=== PATIENT | female | born 2000 ===

== ENCOUNTER 2019-12-31 13:53 | Inpatient (IN) | payer BC ==
[2019-12-31] MEDS ORDERED: Methylergonovine 0.2 MG/1 ML Amp IM PRN (15:40)
[2019-12-31] MEDS ORDERED: Sodium Chloride 0.9% 2.5 ML Syringe FLUSH PRN (15:40)
[2019-12-31] MEDS ORDERED: Water For Irrigation,Sterile 1,000 ML Container IRR PRN (15:40)
[2019-12-31] MEDS ORDERED: Carboprost Tromethamine 250 MCG/1 ML Amp IM PRN (15:40)
[2019-12-31] MEDS ORDERED: Misoprostol 200 MCG Tab PO PRN (15:40)
[2019-12-31] MEDS ORDERED: Butorphanol 1 MG/ML SDV IVPUSH PRN (15:40)
[2019-12-31] MEDS ORDERED: Lidocaine 1% 50 ML MDV INJECT PRN (15:40)
[2019-12-31] MEDS ORDERED: Sodium Chloride 0.9% 10 ML Syringe FLUSH PRN (15:40)
[2019-12-31] MEDS ORDERED: Sodium Chloride 0.9% 10 ML SDV IV PRN (15:40)
[2019-12-31] MEDS ORDERED: Tranexamic Acid 1,000 MG in Sodium Chloride 0.9% 100 ML IV PRN (15:40)
[2019-12-31] MEDS ORDERED: Nalbuphine 10 MG/1 ML Vial IVPUSH PRN (15:40)
[2019-12-31] MEDS ORDERED: Oxytocin/0.9 % Sodium Chloride 30 UNIT/500 ML BAG IV SCH (15:45)
[2019-12-31] MEDS: Lactated Ringers 1,000 ML IV SCH ×2 (16:43→18:45)
[2019-12-31] MEDS ORDERED: fentaNYL 100 MCG/2 ML SDV ONE (17:14)
[2019-12-31] MEDS ORDERED: Ropivacaine HCl/PF 100 ML ONE (17:14)
--- NOTE | 2019-12-31 17:58 | PCM.PREANE ---
Preanesthetic Assessment - Procedure Proposed Procedure: Late entry, bedside for patient physical assessment and medical history at 1720. Continuous labor epidural for active labor. - Anesthesia/Transfusion/Family Hx Anesthesia History: Prior Anesthesia Without Reaction (Flint teeth under GA with no anesthetic complications. No other known surgeries.) Family History of Anesthesia Reaction: No Transfusion History: No Prior Transfusion(s) - Review of Systems General: No Symptoms Pulmonary: No Symptoms Cardiovascular: No Symptoms Gastrointestinal: No Symptoms Neurological: No Symptoms Other: Reports: None - Physical Assessment NPO Status Date: 12/31/19 (NPO for food, clear liquids okay) NPO Status Time: 11:00 Height: 1.65 m Weight: 93.44 kg ASA Class: 2 Mental Status: Alert & Oriented x3 Airway Class: Mallampati = 2 Dentition: Reports: Normal Dentition Thyro-Mental Finger Breadths: 3 Mouth Opening Finger Breadths: 3 ROM/Head Extension: Full Lungs: Normal Respiratory Effort Cardiovascular: Regular Rate, Regular Rhythm - Lab Values: Laboratory Last Values WBC 14.35 K/uL (4.0-11.0) H 12/31/19 17:04 RBC 4.98 M/uL (4.30-5.90) 12/31/19 17:04 Hgb 15.0 g/dL (12.0-16.0) 12/31/19 17:04 Hct 44.3 % (36.0-46.0) 12/31/19 17:04 MCV 89.0 fL (80.0-98.0) 12/31/19 17:04 MCH 30.1 pg (27.0-32.0) 12/31/19 17:04 MCHC 33.9 g/dL (31.0-37.0) 12/31/19 17:04 RDW Std Deviation 42.1 fl (28.0-62.0) 12/31/19 17:04 RDW Coeff of José Miguel 13 % (11.0-15.0) 12/31/19 17:04 Plt Count 282 K/uL (150-400) 12/31/19 17:04 MPV 12.30 fL (7.40-12.00) H 12/31/19 17:04 Nucleated RBC % 0.0 /100WBC 12/31/19 17:04 Nucleated RBCs # 0 K/uL 12/31/19 17:04 SARS-CoV-2 RNA (LANI) NEGATIVE (NEGATIVE) 12/31/19 15:55 - Allergies Allergies/Adverse Reactions: Allergies Allergy/AdvReac Type Severity Reaction Status Date / Time No Known Allergies Allergy Verified 12/31/19 14:39 - Anesthesia Plan Pre-Op Medication Ordered: None - Acknowledgements Anesthesia Type Planned: Epidural Pt an Appropriate Candidate for the Planned Anesthesia: Yes Alternatives and Risks of Anesthesia Discussed w Pt/Guardian: Yes Pt/Guardian Understands and Agrees with Anesthesia Plan: Yes Additional Comments: Pt consented for MARIPOSA with ASSISTANT STORE DIRECTOR. RN witness present. 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 (See Below) Other OB/BYN History: Genital Herpes - Infectious Disease History Infectious Disease History: Reports: Herpes - Past Surgical History HEENT Surgical History: Reports: Other (See Below) Other HEENT Surgeries/Procedures: [place] Teeth Extraction - SUBSTANCE USE Smoking Status *Q: Never Smoker Second Hand Smoke Exposure: No Recreational Drug Use History: No - HOME MEDS Home Medications: Home Meds No122/Iron/Folic Acid [ Multi Tablet] 1 tab PO DAILY 12/31/19 [History] valACYclovir [Valtrex] 500 mg PO DAILY 12/31/19 [History] - CURRENT (IN HOUSE) MEDS Current Meds: Current Medications Butorphanol Tartrate (Stadol) 1 mg IVPUSH Q1H PRN PRN Reason: Pain Carboprost Tromethamine (Hemabate Ds) 250 mcg IM ASDIRECTED PRN PRN Reason: Post Hemorrhage Lactated Ringer's (Ringers, Lactated) 1,000 mls @ 150 mls/hr IV ASDIRECTED [facility] Last Admin: 12/31/19 16:43 Dose: 150 mls/hr Documented by: Oxytocin/Sodium Chloride (Oxytocin 30 Unit/500 Ml-Ns) 30 unit in 500 mls @ 500 mls/hr IV TITRATE ADILIA Tranexamic Acid 1,000 mg/ (Sodium Chloride) 110 mls @ 660 mls/hr IV ONETIME PRN PRN Reason: Bleeding Lidocaine HCl (Xylocaine 1%) 50 ml INJECT ONETIME PRN PRN Reason: Laceration repair Methylergonovine Maleate (Methergine) 0.2 mg IM ASDIRECTED PRN PRN Reason: Post Hemorrhage Misoprostol (Cytotec) 200 mcg PO ONETIME PRN PRN Reason: Post Hemorrhage Nalbuphine HCl (Nubain) 10 mg IVPUSH Q1H PRN PRN Reason: Pain (severe 7-10) Sodium Chloride (Saline Flush) 10 ml FLUSH ASDIRECTED PRN PRN Reason: Keep Vein Open Sodium Chloride (Saline Flush) 2.5 ml FLUSH ASDIRECTED PRN PRN Reason: Keep Vein Open Sodium Chloride (Normal Saline) 10 ml IV ASDIRECTED PRN PRN Reason: IV Use Sterile Water (Sterile Water For Irrigation) 1,000 ml IRR ASDIRECTED PRN PRN Reason: delivery Discontinued Medications Fentanyl (Sublimaze) Confirm Administered Dose 200 mcg .ROUTE .STK-MED ONE Stop: 12/31/19 17:15 Ropivacaine (Naropin 0.2%) Confirm Administered Dose 100 mls @ as directed .ROUTE .STK-MED ONE Stop: 12/31/19 17:15
--- NOTE | 2019-12-31 18:09 | PCM.SN.2 ---
- Free Text/Narrative Note: Anesthesia time [id number] To LDR room 1, bedside at 1720. Discussed epidural risks, benefits, alternatives, maintenance, AUTO PARTS COUNTER PERSON, and anesthesia coverage with patient. All questions answered and concerns addressed. Consent signed with RN present as witness. Time-out for verification. 1727- Sitting position, sterile prep and drape, mask/hat/eye protection/ sterile gloves. Lido 1% 3ml with 22g for localization. 1735- Attempt #1 with 17g Tuohy needle successful. DELBERT with saline at 5.5 cm, catheter threaded to 11cm at skin. No paresthesias. 1737- Negative to aspiration for both CSF and heme, negative test dose (3ml 1.5% lido. with 1:200,000 epi). Sterile tegaderm dressing applied, cloth tape to secure. 1746- remains negative to aspiration. Infusion started (0.2% ropivicaine with 2 mcg/ml fentanyl). Bolus dose of 6ml administered. Educated on AUTO PARTS COUNTER PERSON to review. Rate of 8ml/hr, AUTO PARTS COUNTER PERSON 4ml Q10 min, 32 ml/hr lockout. 1803- pt assessed at T10 level, reports adequate pain control.
[2019-12-31] MEDS ORDERED: Benzocaine/Menthol 20%-0.5% Spray 78 GM Cannister TOP PRN (19:59)
[2019-12-31] MEDS ORDERED: Lanolin 100% Cream 7 GM Tube TOP PRN (19:59)
[2019-12-31] MEDS ORDERED: Ibuprofen 400 MG Tab PO PRN (19:59)
[2019-12-31] MEDS ORDERED: Acetaminophen 500 MG Tab PO PRN ×2 (19:59)
[2019-12-31] MEDS ORDERED: Bisacodyl 10 MG Supp RECTAL PRN (19:59)
[2019-12-31] MEDS ORDERED: Ibuprofen 800 MG Tab PO PRN (19:59)
[2019-12-31] MEDS ORDERED: Witch Hazel Medicated Pads 40/Jar TOP PRN (19:59)
[2019-12-31] MEDS: Docusate Sodium 100 MG Cap PO PRN (22:53)
--- NOTE | 2020-01-01 03:25 | OR ---
SURGEON: Singh Rao MD DATE OF PROCEDURE: 12/31/2019 INDICATION FOR PROCEDURE: A 19-year-old, G1, P0, at 38 weeks and 5 days, presenting with labor. She started to have contractions last night that became stronger and closer together. She presented to Labor and Delivery this afternoon and was found to be 4 cm dilated with regular contractions and progressed to 5 cm. was complicated by marginal cord insertion of the placenta and was monitored with close ultrasounds. 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 GBS negative. She received an epidural with good pain control and progressed to fully dilated. The membrane was ruptured and was clear. heart rate began showing recurrent early and variable decels to the 90s that would recover between contractions. She began pushing with contractions. PREOPERATIVE DIAGNOSIS: Cox intrauterine at 38 weeks and 5 days. POSTOPERATIVE DIAGNOSIS: Cox intrauterine at 38 weeks and 5 days. PROCEDURE PERFORMED: Normal spontaneous vaginal delivery, repair of first degree laceration ANESTHESIA: Epidural. ANESTHESIOLOGIST: Dr. Douglas Watts. FINDINGS: Male infant, score of 9 and 9 with weight of 6lb 9 oz. DESCRIPTION OF PROCEDURE: The patient pushed with contractions for approximately 20 minutes. There was prolonged decels to the 90s that would recover between contractions. The head delivered in occiput anterior position, restituted ROT. Anterior shoulder delivered easily, followed by posterior shoulder and remaining body. No nuchal cord was noted. The baby was placed on maternal chest and evaluated by awaiting nursery staff. Baby was pink, crying, and moving all extremities. The umbilical cord was clamped and cut after 60 seconds and no longer pulsating. Umbilical cord gases were obtained. The placenta was removed with gentle traction on the umbilical cord. It was examined and found to be intact. Marginal cord insertion was noted. Fundal massage was performed and it was firm at the umbilicus. Vaginal bleeding was light. Perineum was examined and a small first- degree laceration was noted. Two [id number] were placed using 3-0 Vicryl suture. Hemostasis was confirmed after the procedure. The patient tolerated the procedure well, and was given care instructions. VIKTORIYA / MARCELINO /[id number] MTDSandrita
--- NOTE | 2020-01-01 08:58 | PCM.PNPP ---
- General Info Date of Service: 01/01/20 Functional Status: Reports: Pain Controlled, Tolerating Diet, Ambulating, Urinating, Other (Bleeding is light) - Review of Systems General: Reports: No Symptoms HEENT: Reports: No Symptoms Pulmonary: Reports: No Symptoms Cardiovascular: Reports: No Symptoms Gastrointestinal: Reports: No Symptoms Genitourinary: Reports: No Symptoms Musculoskeletal: Reports: No Symptoms Skin: Reports: No Symptoms Neurological: Reports: No Symptoms Psychiatric: Reports: No Symptoms - Patient Data Vital Signs - Most Recent: Last Vital Signs Temp 36.9 C 01/01/20 07:35 Pulse 63 01/01/20 07:35 Resp 12 01/01/20 07:35 BP 139/83 01/01/20 07:35 Pulse Ox 96 01/01/20 07:35 Weight - Most Recent: 205 lb 15.999 oz Lab Results - Last 24 Hours: Laboratory Results - last 24 hr 12/31/19 12/31/19 12/31/19 Range/Units 15:55 17:04 17:04 WBC 14.35 H (4.0-11.0) K/uL RBC 4.98 (4.30-5.90) M/uL Hgb 15.0 (12.0-16.0) g/dL Hct 44.3 (36.0-46.0) % MCV 89.0 (80.0-98.0) fL MCH 30.1 (27.0-32.0) pg MCHC 33.9 (31.0-37.0) g/dL RDW Std Deviation 42.1 (28.0-62.0) fl RDW Coeff of José Miguel 13 (11.0-15.0) % Plt Count 282 (150-400) K/uL MPV 12.30 H (7.40-12.00) fL Nucleated RBC % 0.0 /100WBC Nucleated RBCs # 0 K/uL SARS-CoV-2 RNA (LANI) NEGATIVE (NEGATIVE) Blood Type B POSITIVE Antibody Screen NEGATIVE 01/01/20 Range/Units 06:09 WBC (4.0-11.0) K/uL RBC (4.30-5.90) M/uL Hgb 13.0 (12.0-16.0) g/dL Hct 39.8 (36.0-46.0) % MCV (80.0-98.0) fL MCH (27.0-32.0) pg MCHC (31.0-37.0) g/dL RDW Std Deviation (28.0-62.0) fl RDW Coeff of José Miguel (11.0-15.0) % Plt Count (150-400) K/uL MPV (7.40-12.00) fL Nucleated RBC % /100WBC Nucleated RBCs # K/uL SARS-CoV-2 RNA (LANI) (NEGATIVE) Blood Type Antibody Screen Med Orders - Current: Current Medications Acetaminophen (Tylenol Extra Strength) 500 mg PO Q4H PRN PRN Reason: Pain Acetaminophen (Tylenol Extra Strength) 1,000 mg PO Q4H PRN PRN Reason: Pain Benzocaine/Menthol (Dermoplast Pain Relief 20%-0.5% Gary) 78 gm TOP ASDIRECTED PRN PRN Reason: Perineal Comfort Measure Last Admin: 12/31/19 21:42 Dose: 1 applic Documented by: Bisacodyl (Dulcolax) 10 mg RECTAL ONETIME PRN PRN Reason: Constipation Butorphanol Tartrate (Stadol) 1 mg IVPUSH Q1H PRN PRN Reason: Pain Carboprost Tromethamine (Hemabate Ds) 250 mcg IM ASDIRECTED PRN PRN Reason: Post Hemorrhage Docusate Sodium (Colace) 100 mg PO BID PRN PRN Reason: Constipation Last Admin: 12/31/19 22:53 Dose: 100 mg Documented by: Emollient Ointment (Lansinoh Hpa) 0 gm TOP ASDIRECTED PRN PRN Reason: Sore Nipples Last Admin: 12/31/19 21:42 Dose: 1 applic Documented by: Lactated Ringer's (Ringers, Lactated) 1,000 mls @ 150 mls/hr IV ASDIRECTED ADILIA Last Admin: 12/31/19 18:45 Dose: 150 mls/hr Documented by: Oxytocin/Sodium Chloride (Oxytocin 30 Unit/500 Ml-Ns) 30 unit in 500 mls @ 500 mls/hr IV TITRATE [facility] Last Admin: 12/31/19 19:55 Dose: 500 mls/hr Documented by: Tranexamic Acid 1,000 mg/ (Sodium Chloride) 110 mls @ 660 mls/hr IV ONETIME PRN PRN Reason: Bleeding Ibuprofen (Motrin) 400 mg PO Q4H PRN PRN Reason: Pain Ibuprofen (Motrin) 800 mg PO Q6H PRN PRN Reason: Pain Lidocaine HCl (Xylocaine 1%) 50 ml INJECT ONETIME PRN PRN Reason: Laceration repair Methylergonovine Maleate (Methergine) 0.2 mg IM ASDIRECTED PRN PRN Reason: Post Hemorrhage Misoprostol (Cytotec) 200 mcg PO ONETIME PRN PRN Reason: Post Hemorrhage Nalbuphine HCl (Nubain) 10 mg IVPUSH Q1H PRN PRN Reason: Pain (severe 7-10) Sodium Chloride (Saline Flush) 10 ml FLUSH ASDIRECTED PRN PRN Reason: Keep Vein Open Sodium Chloride (Saline Flush) 2.5 ml FLUSH ASDIRECTED PRN PRN Reason: Keep Vein Open Sodium Chloride (Normal Saline) 10 ml IV ASDIRECTED PRN PRN Reason: IV Use Sterile Water (Sterile Water For Irrigation) 1,000 ml IRR ASDIRECTED PRN PRN Reason: delivery Witdino Booker (Tucks) 1 pad TOP ASDIRECTED PRN PRN Reason: comfort care Last Admin: 12/31/19 21:23 Dose: 1 applic Documented by: Discontinued Medications Fentanyl (Sublimaze) Confirm Administered Dose 200 mcg .ROUTE .STK-MED ONE Stop: 12/31/19 17:15 Ropivacaine (Naropin 0.2%) Confirm Administered Dose 100 mls @ as directed .ROUTE .STK-MED ONE Stop: 12/31/19 17:15 - Interaction Infant Disposition, : [place] at Bedside Interaction: Holding Feeding: Attempted ; Nursed Fair/Poor Support Person: Friend - Recovery Exam Fundal Tone: Firm Fundal Level: 2 Fingerbreadths Below Umbilicus Fundal Placement: Midline Lochia Amount: Scant Lochia Color: Rubra/Red Perineum Description: Edematous Episiotomy/Laceration: Approximated Bladder Status: Nonpalpable, Voiding Urinary Elimination: Voided - Exam General: Alert, Oriented, Cooperative, No Acute Distress HEENT: Pupils Equal, Pupils Reactive Neck: Supple, Trachea Midline, No JVD Lungs: Normal Respiratory Effort GI/Abdominal Exam: Soft, Non-Tender, No Organomegaly, No Distention Extremities: Normal Inspection, Normal Range of Motion, Non-Tender, No Pedal Edema Skin: Warm, Dry, Intact Neurological: No New Focal Deficit Psy/Mental Status: Alert, Normal Affect, Normal Mood - Problem List Review Problem List Initiated/Reviewed/Updated: Yes - My Orders Last 24 Hours: My Active Orders 12/31/19 14:42 Up ad Valery [RC] ASDIRECTED Vital Signs [RC] PER UNIT ROUTINE Resuscitation Status Routine 12/31/19 15:40 Butorphanol [Stadol] 1 mg IVPUSH Q1H PRN Carboprost Tromethamine [Hemabate DS] 250 mcg IM ASDIRECTED PRN Lidocaine 1% [Xylocaine 1%] 50 ml INJECT ONETIME PRN Methylergonovine [Methergine] 0.2 mg IM ASDIRECTED PRN Nalbuphine [Nubain] 10 mg IVPUSH Q1H PRN Sodium Chloride 0.9% [Normal Saline] 10 ml IV ASDIRECTED PRN Sodium Chloride 0.9% [Saline Flush] 10 ml FLUSH ASDIRECTED PRN Sodium Chloride 0.9% [Saline Flush] 2.5 ml FLUSH ASDIRECTED PRN Tranexamic Acid [Cyklokapron] 1,000 mg Sodium Chloride 0.9% [Normal Saline] 100 ml IV ONETIME Water For Irrigation,Sterile [Sterile Water for Irrigation] 1,000 ml IRR ASDIRECTED PRN miSOPROStoL [Cytotec] 200 mcg PO ONETIME PRN 12/31/19 15:41 May Shower [RC] ASDIRECTED Notify Provider [RC] PRN Up ad Valery [RC] ASDIRECTED Vital Signs [RC] PER UNIT ROUTINE Scalp Electrode [WOMSER] Per Unit Routine Peripheral IV Insertion Adult [OM.PC] Routine 12/31/19 15:45 Lactated Ringers [Ringers, Lactated] 1,000 ml IV ASDIRECTED Oxytocin/0.9 % Sodium Chloride [Oxytocin 30 Unit/500 ML-NS] 30 unit in 500 ml IV TITRATE 12/31/19 Dinner Regular Diet [DIET] 12/31/19 17:04 RPR (SYPHILIS SERO) W/ RFLX [REF] Routine 12/31/19 19:59 Patient Status [ADT] Routine August Shower [RC] ASDIRECTED Up ad Valery [RC] ASDIRECTED Vital Signs [RC] PER UNIT ROUTINE Acetaminophen [Tylenol Extra Strength] 1,000 mg PO Q4H PRN Acetaminophen [Tylenol Extra Strength] 500 mg PO Q4H PRN Benzocaine/Menthol [Dermoplast Pain Relief 20%-0.5% Gary] 78 gm TOP ASDIRECTED PRN Docusate Sodium [Colace] 100 mg PO BID PRN Ibuprofen [Motrin] 400 mg PO Q4H PRN Ibuprofen [Motrin] 800 mg PO Q6H PRN Lanolin [Lansinoh HPA] See Dose Instructions TOP ASDIRECTED PRN bisacodyL [Dulcolax] 10 mg RECTAL ONETIME PRN witch Tre [Tucks] 1 pad TOP ASDIRECTED PRN Assess Lochia [WOMSER] Per Unit Routine Assess Uterine Involution [WOMSER] Per Unit Routine Peripheral IV Discontinue [OM.PC] Routine 12/31/19 20:00 Perineal Care [OM.PC] Per Unit Routine Sitz Bath [OM.PC] Per Unit Routine - Assessment Assessment:: 19yo PPD1 s/p , stable and doing well. - Plan Plan:: - vital stable - Hgb 13, bleeding is light, no s/s of anemia - well Stable for discharge home today, reviewed care instructions
--- NOTE | 2020-01-01 09:35 | PCM48HPAN ---
Post Anesthesia Note - EVALUATION WITHIN 48HRS OF ANESTHETIC Vital Signs in Normal Range: Yes Patient Participated in Evaluation: Yes Respiratory Function Stable: Yes Airway Patent: Yes Cardiovascular Function Stable: Yes Hydration Status Stable: Yes Pain Control Satisfactory: Yes (Reports pain 1/10 at rest, 2/10 with ambulating and ) Nausea and Vomiting Control Satisfactory: Yes (Taking PO well, denies nausea) Mental Status Recovered: Yes Vital Signs: Last Vital Signs Temp 36.9 C 01/01/20 07:35 Pulse 63 01/01/20 07:35 Resp 12 01/01/20 07:35 BP 139/83 01/01/20 07:35 Pulse Ox 96 01/01/20 07:35 - COMMENTS/OBSERVATIONS Free Text/Narrative:: Pt reports full return of strength and sensation to BLE, ambulating without difficulty.
[2020-01-01] MEDS: Docusate Sodium 100 MG Cap PO PRN ×2 (12:50→22:56)
--- NOTE | 2020-01-02 12:51 | PCM.PNPP ---
- General Info Date of Service: 01/02/20 Functional Status: Reports: Pain Controlled, Tolerating Diet, Ambulating, Urinating - Review of Systems General: Reports: No Symptoms HEENT: Reports: No Symptoms Pulmonary: Reports: No Symptoms Cardiovascular: Reports: No Symptoms Gastrointestinal: Reports: No Symptoms Genitourinary: Reports: No Symptoms Musculoskeletal: Reports: No Symptoms Skin: Reports: No Symptoms Neurological: Reports: No Symptoms Psychiatric: Reports: No Symptoms - Patient Data Vital Signs - Most Recent: Last Vital Signs Temp 36.3 C 01/02/20 08:00 Pulse 68 01/02/20 08:00 Resp 16 01/02/20 08:00 BP 117/82 01/02/20 08:00 Pulse Ox 98 01/02/20 08:00 Weight - Most Recent: 205 lb 15.999 oz Med Orders - Current: Current Medications Acetaminophen (Tylenol Extra Strength) 500 mg PO Q4H PRN PRN Reason: Pain Acetaminophen (Tylenol Extra Strength) 1,000 mg PO Q4H PRN PRN Reason: Pain Benzocaine/Menthol (Dermoplast Pain Relief 20%-0.5% [place]) 78 gm TOP ASDIRECTED PRN PRN Reason: Perineal Comfort Measure Last Admin: 12/31/19 21:42 Dose: 1 applic Documented by: Bisacodyl (Dulcolax) 10 mg RECTAL ONETIME PRN PRN Reason: Constipation Butorphanol Tartrate (Stadol) 1 mg IVPUSH Q1H PRN PRN Reason: Pain Carboprost Tromethamine (Hemabate Ds) 250 mcg IM ASDIRECTED PRN PRN Reason: Post Hemorrhage Docusate Sodium (Colace) 100 mg PO BID PRN PRN Reason: Constipation Last Admin: 01/01/20 22:56 Dose: 100 mg Documented by: Emollient Ointment (Lansinoh Hpa) 0 gm TOP ASDIRECTED PRN PRN Reason: Sore Nipples Last Admin: 12/31/19 21:42 Dose: 1 applic Documented by: Lactated Ringer's (Ringers, Lactated) 1,000 mls @ 150 mls/hr IV ASDIRECTED ADILIA Last Admin: 12/31/19 18:45 Dose: 150 mls/hr Documented by: Oxytocin/Sodium Chloride (Oxytocin 30 Unit/500 Ml-Ns) 30 unit in 500 mls @ 500 mls/hr IV TITRATE ADILIA Last Admin: 12/31/19 19:55 Dose: 500 mls/hr Documented by: Tranexamic Acid 1,000 mg/ (Sodium Chloride) 110 mls @ 660 mls/hr IV ONETIME PRN PRN Reason: Bleeding Ibuprofen (Motrin) 400 mg PO Q4H PRN PRN Reason: Pain Ibuprofen (Motrin) 800 mg PO Q6H PRN PRN Reason: Pain Last Admin: 01/01/20 22:56 Dose: 800 mg Documented by: Lidocaine HCl (Xylocaine 1%) 50 ml INJECT ONETIME PRN PRN Reason: Laceration repair Methylergonovine Maleate (Methergine) 0.2 mg IM ASDIRECTED PRN PRN Reason: Post Hemorrhage Misoprostol (Cytotec) 200 mcg PO ONETIME PRN PRN Reason: Post Hemorrhage Nalbuphine HCl (Nubain) 10 mg IVPUSH Q1H PRN PRN Reason: Pain (severe 7-10) Sodium Chloride (Saline Flush) 10 ml FLUSH ASDIRECTED PRN PRN Reason: Keep Vein Open Sodium Chloride (Saline Flush) 2.5 ml FLUSH ASDIRECTED PRN PRN Reason: Keep Vein Open Sodium Chloride (Normal Saline) 10 ml IV ASDIRECTED PRN PRN Reason: IV Use Sterile Water (Sterile Water For Irrigation) 1,000 ml IRR ASDIRECTED PRN PRN Reason: delivery Elsie Booker (Tucks) 1 pad TOP ASDIRECTED PRN PRN Reason: comfort care Last Admin: 12/31/19 21:23 Dose: 1 applic Documented by: Discontinued Medications Fentanyl (Sublimaze) Confirm Administered Dose 200 mcg .ROUTE .STK-MED ONE Stop: 12/31/19 17:15 Ropivacaine (Naropin 0.2%) Confirm Administered Dose 100 mls @ as directed .ROUTE .STK-MED ONE Stop: 12/31/19 17:15 - Interaction Infant Disposition, : at Bedside Infant Interaction: Holding Feeding: Attempted ; Nursed Fair/Poor Support Person: Friend - Recovery Exam Fundal Tone: Firm Fundal Level: 2 Fingerbreadths Below Umbilicus Fundal Placement: Midline Lochia Amount: Small Lochia Color: Rubra/Red Perineum Description: Intact, Minimal Bruising/Swelling Episiotomy/Laceration: Approximated Bladder Status: Voiding Urinary Elimination: Voided - Exam General: Alert, Oriented, Cooperative, No Acute Distress HEENT: Pupils Equal, Pupils Reactive Neck: Trachea Midline, No JVD Lungs: Normal Respiratory Effort GI/Abdominal Exam: Soft, Non-Tender, No Organomegaly, No Distention Extremities: Normal Inspection, Normal Range of Motion, Non-Tender, No Pedal Edema Skin: Warm, Dry, Intact Neurological: No New Focal Deficit Psy/Mental Status: Alert, Normal Affect, Normal Mood - Problem List Review Problem List Initiated/Reviewed/Updated: Yes - My Orders Last 24 Hours: My Active Orders 01/02/20 12:29 Ready for Discharge [RC] PER UNIT ROUTINE - Assessment Assessment:: 19yo PPD2 s/p , stable and doing well. - Plan Plan:: - vital stable - Hgb 13, bleeding is light, no s/s of anemia - well, baby is pending repeat labs for discharge Stable for discharge home today, reviewed care instructions
== END 2020-01-02 13:50 | disposition home or self-care (01) | DRG 560 ==
LOC: MW.OBCHECK 13:53 → MW.OB 15:30 → OBSVTOIN 19:08 → MW.OB 23:38
PROVIDERS: ADMIT Obstetrics & Gynecology; ATTEND Obstetrics & Gynecology
PROC: 10E0XZZ Delivery of Products of Conception, External Approach (ICD-10-PCS; principal; 2019-12-31)
PROC: 4A1HXCZ Monitoring of Products of Conception, Cardiac Rate, External Approach (ICD-10-PCS; 2019-12-31)
PROC: 3E0R3BZ Introduction of Anesthetic Agent into Spinal Canal, Percutaneous Approach (ICD-10-PCS; 2019-12-31)
PROC: 00HU33Z Insertion of Infusion Device into Spinal Canal, Percutaneous Approach (ICD-10-PCS; 2019-12-31)
DX: O43.123 Velamentous insertion of umbilical cord, third trimester (principal); O98.52 Other viral diseases complicating childbirth; Z3A.38 38 weeks gestation of pregnancy; Z37.0 Single live birth; O76 Abnormality in fetal heart rate and rhythm complicating labor and delivery; Z20.828 Contact with and (suspected) exposure to other viral communicable diseases; B00.9 Herpesviral infection, unspecified
CPT/HCPCS: 01967; 36415; 51702; 59025; 59409; 82803; 85014; 85018; 85027; 86592; 86850; 86900; 86901; A9270-GY; J2590; J2795; J3010; J7120; U0002

== ENCOUNTER 2022-08-12 23:52 | Inpatient (IN) | payer BC ==
[2022-08-13] MEDS ORDERED: Sodium Chloride 0.9% 20 ML SDV IV PRN (00:07)
[2022-08-13] MEDS ORDERED: Misoprostol 200 MCG Tab PO PRN (00:07)
[2022-08-13] MEDS ORDERED: Sodium Chloride 0.9% 10 ML Syringe FLUSH PRN (00:07)
[2022-08-13] MEDS ORDERED: Sodium Chloride 0.9% 2.5 ML Syringe FLUSH PRN (00:07)
[2022-08-13] MEDS ORDERED: Ondansetron 4 MG/2 ML SDV IVPUSH PRN (00:07)
[2022-08-13] MEDS ORDERED: Water For Irrigation,Sterile 1,000 ML Container IRR PRN (00:07)
[2022-08-13] MEDS ORDERED: Methylergonovine 0.2 MG/1 ML Amp IM PRN (00:07)
[2022-08-13] MEDS ORDERED: Butorphanol 1 MG/ML SDV IVPUSH PRN (00:07)
[2022-08-13] MEDS ORDERED: Lidocaine 1% 50 ML MDV INJECT PRN (00:07)
[2022-08-13] MEDS ORDERED: Tranexamic Acid 1,000 MG in Sodium Chloride 0.9% 100 ML IV PRN (00:07)
[2022-08-13] MEDS ORDERED: Terbutaline 1 MG/ML SDV SUBCUT PRN (00:07)
[2022-08-13] MEDS ORDERED: Carboprost Tromethamine 250 MCG/1 ML Amp IM PRN (00:07)
[2022-08-13] MEDS ORDERED: Oxytocin/0.9 % Sodium Chloride 30 UNIT/500 ML BAG IV SCH ×2 (00:15)
[2022-08-13] MEDS: Lactated Ringers 1,000 ML IV SCH ×2 (00:20→07:31)
[2022-08-13 01:07] LABS: HEMATOCRIT 37.3 % (36.0-46.0); HEMOGLOBIN 12.8 g/dL (12.0-16.0); MEAN CORPUSCULAR HEMOGLOBIN 29.7 pg (27.0-32.0); MEAN CORPUSCULAR HGB CONC 34.3 g/dL (31.0-37.0); MEAN CORPUSCULAR VOLUME 86.5 fL (80.0-98.0); RED BLOOD CELL COUNT 4.31 M/uL (4.30-5.90); WHITE BLOOD CELL COUNT,WBC 10.04 K/uL (4.0-11.0)
[2022-08-13] MEDS: Misoprostol 25 MCG (1/4 of 100 MCG) Tab VAG PRN ×2 (01:07→07:03)
[2022-08-13] MEDS ORDERED: Phenylephrine HCl 0.5 MG/5 ML AMP IVPUSH PRN (07:37)
[2022-08-13] MEDS ORDERED: ePHEDrine 50 MG/ML SDV IVPUSH PRN ×2 (07:37)
[2022-08-13] MEDS ORDERED: Ropivacaine HCl/PF 400 MG in Premix Bag 1 BAG EPIDUR SCH (07:45)
[2022-08-13] MEDS ORDERED: Bupivacaine 0.5% 10 ML SDV ONE (09:19)
[2022-08-13] MEDS ORDERED: Ropivacaine/PF 400 MG/200 ML PCA ONE (09:19)
[2022-08-13] MEDS ORDERED: Sodium Chloride 0.9% 0 ML ONE (10:44)
[2022-08-13] MEDS ORDERED: Oxytocin 10 Units/1 ML SDV ONE (10:44)
[2022-08-13] MEDS ORDERED: Tranexamic Acid 1,000 MG/10 ML Vial ONE (10:44)
[2022-08-13] MEDS ORDERED: Misoprostol 200 MCG Tab ONE (10:45)
[2022-08-13] MEDS ORDERED: Carboprost Tromethamine 250 MCG/1 mL Vial ONE (10:46)
[2022-08-13] MEDS ORDERED: Methylergonovine 0.2 MG/1 ML Amp ONE (10:46)
[2022-08-13] MEDS ORDERED: Acetaminophen 500 MG Tab PO PRN (11:17)
[2022-08-13] MEDS ORDERED: Lanolin 100% Cream 7 GM Tube TOP PRN (11:17)
[2022-08-13] MEDS ORDERED: Witch Hazel Medicated Pads 40/Jar TOP PRN (11:17)
[2022-08-13] MEDS ORDERED: Benzocaine/Menthol 20%-0.5% Spray 78 GM Cannister TOP PRN (11:17)
[2022-08-13] MEDS ORDERED: Ibuprofen 400 MG Tab PO PRN (11:17)
[2022-08-13] MEDS ORDERED: oxyCODONE 5 MG Tab PO PRN (11:17)
[2022-08-13] MEDS ORDERED: Bisacodyl 10 MG Supp RECTAL PRN (11:17)
[2022-08-13] MEDS ORDERED: Docusate Sodium 100 MG Cap PO PRN (11:17)
[2022-08-13 12:34] LABS: PH,UMBILICAL ARTERIAL 7.208 (7.18-7.38); PH,UMBILICAL VENOUS 7.287 (7.25-7.45)
[2022-08-13] MEDS: Acetaminophen 500 MG Tab PO PRN ×2 (15:03→21:23)
[2022-08-13] MEDS: Ibuprofen 800 MG Tab PO PRN (19:13)
[2022-08-14] MEDS: Acetaminophen 500 MG Tab PO PRN (01:41)
[2022-08-14] MEDS: Ibuprofen 800 MG Tab PO PRN (04:23)
[2022-08-14 06:23] LABS: HEMATOCRIT 38.3 % (36.0-46.0); HEMOGLOBIN 12.9 g/dL (12.0-16.0)
== END 2022-08-14 14:25 | disposition home or self-care (01) | DRG 560 ==
LOC: MW.OBCHECK 23:52 → MW.OB 23:57 → MW.OBCHECK 08-13 00:07 → MW.OB 08-13 00:07 → OBSVTOIN 08-13 11:17 → MW.OB 08-13 15:00
PROVIDERS: ADMIT Obstetrics & Gynecology; ATTEND Obstetrics & Gynecology
PROC: 10E0XZZ Delivery of Products of Conception, External Approach (ICD-10-PCS; principal; 2022-08-13)
PROC: 10907ZC Drainage of Amniotic Fluid, Therapeutic from Products of Conception, Via Natural or Artificial Opening (ICD-10-PCS; 2022-08-13)
PROC: 3E0P7VZ Introduction of Hormone into Female Reproductive, Via Natural or Artificial Opening (ICD-10-PCS; 2022-08-13)
DX: O98.32 Other infections with a predominantly sexual mode of transmission complicating childbirth (principal); A60.09 Herpesviral infection of other urogenital tract; Z3A.39 39 weeks gestation of pregnancy; Z37.0 Single live birth
CPT/HCPCS: 01967; 36415; 51702; 59025; 59409; 82803; 85014; 85018; 85027; 86592; 86850; 86900; 86901; A9270-GY; J0595; J2590; J2795; J3490; J7120